=== PATIENT | female | born 1935 | race Caucasian/White ===

== ENCOUNTER 2020-03-22 04:25 | Inpatient (IN) | payer MEDICARE ==
[~2020-03-22] VITALS: Ht 157.5 cm; Wt 84.2 kg
--- NOTE | 2020-03-22 04:54 | PHYS DOC ---
General Adult EDM: Chief Complaint: SYNCOPE HPI: HPI: 85-year-old deaf female presents after syncopal episode at home. Her daughter provides sign interpretation for the patient. The patient had several episodes of diarrhea earlier today. She was on the toilet having a bowel movement when she came pale and slumped over to the side. She was unresponsive for several seconds and then woke back up. She did not fall off of the toilet because her daughter was there to help her. She is the one who called EMS. The patient has not had a previous syncopal episode. She did take Imodium earlier today her diarrhea seemed to resolve. She currently complains of right lower quadrant abdominal pain. It is a mild to moderate cramping sensation. She denies fever or chills. (LESLIE TAYLOR DO) Review of Systems: Review of Systems: Constitutional: Denies fever or chills Eyes: Denies change in visual acuity HENT: Denies nasal congestion or sore throat Respiratory: Denies cough or shortness of breath Cardiovascular: Denies chest pain or edema GI: RLQ abdominal pain, diarrhea : Denies dysuria Musculoskeletal: Denies back pain or joint pain Integument: Denies rash Neurologic: Denies headache, focal weakness or sensory changes Endocrine: Denies polyuria or polydipsia Lymphatic: Denies swollen glands Psychiatric: Denies depression or anxiety (LESLIE TAYLOR DO) Review of Systems: +cough, +diarrhea (SHARAD NAYAK MD) Allergies: Allergies: Allergies Coded Allergies Type Severity Reaction Last Updated Verified No Known Drug Allergies 03/22/20 No (LESLIE TAYLOR DO) Physical Exam: PE: Constitutional: Well developed, well nourished, no acute distress, non-toxic appearance. [] HENT: Normocephalic, atraumatic, bilateral external ears normal, oropharynx moist, no oral exudates, nose normal. [] Eyes: PERRLA, EOMI, conjunctiva normal, no discharge. [] Neck: Normal range of motion, no tenderness, supple, no stridor. [] Cardiovascular: Heart rate regular rhythm, no murmur [] Lungs & Thorax: Bilateral breath sounds clear to auscultation [] Abdomen: Bowel sounds normal, soft, RLQ tenderness, no masses, no pulsatile masses. [] Skin: Warm, dry, no erythema, no rash. [] Back: No tenderness, no CVA tenderness. [] Extremities: No tenderness, no cyanosis, no clubbing, ROM intact, no edema. [] Neurologic: Alert and oriented X 3, normal motor function, normal sensory func tion, no focal deficits noted. [] Psychologic: Affect normal, judgement normal, mood normal. [] (LESLIE TAYLOR DO) PE: Resting comfortably, no respiratory distress (SHARAD NAYAK MD) Current Patient Data: Labs: Laboratory Tests Test 03/22/20 04:40 White Blood Count 5.2 x10^3/uL Red Blood Count 3.49 x10^6/uL Hemoglobin 10.6 g/dL Hematocrit 32.9 % Mean Corpuscular Volume 94 fL Mean Corpuscular Hemoglobin 30 pg Mean Corpuscular Hemoglobin Concent 32 g/dL Red Cell Distribution Width 13.9 % Platelet Count 162 x10^3/uL Neutrophils (%) (Auto) 57 % Lymphocytes (%) (Auto) 29 % Monocytes (%) (Auto) 12 % Eosinophils (%) (Auto) 1 % Basophils (%) (Auto) 1 % Neutrophils # (Auto) 3.0 x10^3uL Lymphocytes # (Auto) 1.5 x10^3/uL Monocytes # (Auto) 0.6 x10^3/uL Eosinophils # (Auto) 0.0 x10^3/uL Basophils # (Auto) 0.0 x10^3/uL Sodium Level 140 mmol/L Potassium Level 3.9 mmol/L Chloride Level 103 mmol/L Carbon Dioxide Level 23 mmol/L Anion Gap 14 Blood Urea Nitrogen 49 mg/dL Creatinine 3.2 mg/dL Estimated GFR (Cockcroft-Gault) 13.7 BUN/Creatinine Ratio 15 Glucose Level 116 mg/dL Calcium Level 7.4 mg/dL Total Bilirubin 0.2 mg/dL Aspartate Amino Transf (AST/SGOT) 15 U/L Alanine Aminotransferase (ALT/SGPT) 14 U/L Alkaline Phosphatase 94 U/L Troponin I Quantitative < 0.017 ng/mL Total Protein 7.0 g/dL Albumin 3.1 g/dL Albumin/Globulin Ratio 0.8 Current Medications Medications (Trade) Dose Ordered Sig/Nisa Route PRN Reason Start Time Stop Time Status Last Admin Dose Admin Sodium Chloride 1,000 ml @ 1,000 mls/hr 1X ONCE IV 03/22/20 05:00 03/22/20 05:59 DC 03/22/20 05:00 Iohexol (Omnipaque 300 Mg/ml) 75 ml 1X ONCE IV 03/22/20 05:30 03/22/20 05:35 DC Info (Do NOT chart on this entry -- for MONITORING) 1 each PRN DAILY PRN MC SEE COMMENTS 03/22/20 05:30 03/24/20 05:29 Vital Signs: Vital Signs Date Time Temp Pulse Resp B/P (MAP) Pulse Ox O2 Delivery O2 Flow Rate FiO2 03/22/20 05:30 80 21 149/95 (113) 94 Room Air 03/22/20 04:25 98.1 (SHARAD NAYAK MD) EKG: EKG: Sinus rhythm, rate 76, normal axis, no ST elevations or depressions, PVCs. [] (LESLIE TAYLOR DO) EKG: EKG interpreted by me normal sinus rhythm rate 76 normal axis frequent PVCs, normal intervals, nonspecific ST changes (SHARAD NAYAK MD) Radiology/Procedures: Radiology/Procedures: [] Impressions: CHEST AP ONLY Clinical History: Reason: syncope / Spl. Instructions: / History: Technique: AP view of the chest was obtained at 03/22/2020 4:32 AM. Comparison: None. Findings: There are median sternotomy wires. The heart is top normal limits in size. The pulmonary vessels appear normal. There are linear opacities in the lung bases. Deformity of the proximal left humerus is likely secondary to old injury. Impression: Mild basal infiltrates likely discoid atelectasis. Electronically signed by: Ismael Samano III, MD (03/22/2020 5:10 AM) [facility] DICTATED AND SIGNED BY: ISMAEL SAMANO III, MD DATE: 03/22/20509 CC: LESLIE TAYLOR DO ~ (LESLIE TAYLOR DO) Radiology/Procedures: [address] [address] IMAGING REPORT Signed PATIENT: ROBIN HAUSER ACCOUNT: [id number] : 1935 LOCATION: ER AGE: 85 SEX: F EXAM STATUS: PRE ER ORD. PHYSICIAN: LESLIE TAYLOR DO REASON: syncope PROCEDURE: CHEST AP ONLY CHEST AP ONLY Clinical History: Reason: syncope / Spl. Instructions: / History: Technique: AP view of the chest was obtained at 03/22/2020 4:32 AM. Comparison: None. Findings: There are median sternotomy wires. The heart is top normal limits in size. The pulmonary vessels appear normal. There are linear opacities in the lung bases. Deformity of the proximal left humerus is likely secondary to old injury. Impression: Mild basal infiltrates likely discoid atelectasis. Electronically signed by: Ismael Samano III, MD (03/22/2020 5:10 AM) [facility] DICTATED AND SIGNED BY: ISMAEL SAMANO III, MD DATE: 03/22/20509 CC: LESLIE TAYLOR DO ~ [address] [address] IMAGING REPORT Signed PATIENT: ROBIN HAUSER ACCOUNT: [id number] : 1935 LOCATION: ER AGE: 85 SEX: F EXAM STATUS: PRE ER ORD. PHYSICIAN: LESLIE TAYLOR DO REASON: syncope PROCEDURE: CHEST AP ONLY CHEST AP ONLY Clinical History: Reason: syncope / Spl. Instructions: / History: Technique: AP view of the chest was obtained at 03/22/2020 4:32 AM. Comparison: None. Findings: There are median sternotomy wires. The heart is top normal limits in size. The pulmonary vessels appear normal. There are linear opacities in the lung bases. Deformity of the proximal left humerus is likely secondary to old injury. Impression: Mild basal infiltrates likely discoid atelectasis. Electronically signed by: Ismael Samano III, MD (03/22/2020 5:10 AM) [facility] DICTATED AND SIGNED BY: ISMAEL SAMANO III, MD DATE: 03/22/20509 CC: LESLIE TAYLOR DO ~ [address] [address] IMAGING REPORT Signed PATIENT: ROBIN HAUSER ACCOUNT: [id number] : 1935 LOCATION: ER AGE: 85 SEX: F EXAM STATUS: REG ER ORD. PHYSICIAN: LESLIE TAYLOR DO REASON: diarrhea, syncope PROCEDURE: CT ABDOMEN PELVIS WO CONTRAST Abdominal and Pelvis CT, Without Contrast: History: Reason: diarrhea, syncope / Spl. Instructions: / History: Comparison: None. Procedure: Axial images are obtained of the abdomen and pelvis, without IV or oral contrast. Oral Contrast: No Findings: Evaluation of solid organs is limited without contrast. There is vague patchy opacities in lung bases. There is moderate size hiatal hernia. There is a short segment of bowel posterior to the cecum which could be a normal appendix. The uterus and ovaries are not seen and could be small or surgically removed. There is marked degenerative changes of the lumbar spine with scoliosis and multilevel central and neuroforaminal stenosis. There has been prior cholecystectomy. The common bile duct is mildly dilated. Liver: Normal. Spleen: Normal. Pancreas: Normal. Adrenal Glands: Normal. Kidneys: Normal. There is no free air or free fluid. There is no lymphadenopathy. The urinary bladder appears normal. There is no pericolonic inflammation identified. Impression: 1. Marked degenerative changes of the spine with scoliosis and multilevel central and neuroforaminal stenosis. 2. Moderate size hiatal hernia. 3. Vague patchy somewhat nodular opacities in the lung bases. This could be discoid atelectasis or early atypical pneumonia. Pulmonary metastasis is not excluded. Recommend follow-up chest x-ray to complete resolution. End impression PQRS Compliance Statement: One or more of the following individualized dose reduction techniques were utilized for this examination: 1. Automated exposure control 2. Adjustment of the mA and/or kV according to patient size 3. Use of iterative reconstruction technique Electronically signed by: Ismael Samano III, MD (03/22/2020 6:18 AM) [facility] DICTATED AND SIGNED BY: ISMAEL SAMANO III, MD DATE: 03/22/20 0618 CC: LESLIE TAYLOR DO; SHARAD NAYAK MD; LINDSAY BATES MD ~ (SHARAD NAYAK MD) Heart Score: Risk Factors: Risk Factors: DM, Current or recent (<one month) smoker, HTN, HLP, family history of CAD, obesity. Risk Scores: Score 0 - 3: 2.5% MACE over next 6 weeks - Discharge Home Score 4 - 6: 20.3% MACE over next 6 weeks - Admit for Clinical Observation Score 7 - 10: 72.7% MACE over next 6 weeks - Early Invasive Strategies (LESLIE TAYLOR DO) Course & Med Decision Making: Course & Med Decision Making Pertinent Labs and Imaging studies reviewed. (See chart for details) The patient's chest x-ray shows some bilateral atelectasis. Her EKG is significant for frequent PVCs. Labs remarkable for hemoglobin 10.6. She has an elevated BUN and creatinine of 3.2. I have no history of labs for comparison. This could be acute due to her acute diarrhea. We have given her a liter normal saline. CT scans are pending. I am signing the patient out to Dr. Nayak at 0600. [] (LESLIE TAYLOR DO) Course & Med Decision Making 85-year-old female signed out to me by Dr. Taylor. Patient is a 85-year-old female with a cough and diarrhea. Patient had a syncopal event prior to arrival. Patient is resting comfortably on my assessment. Work-up reveals a atypical pneumonia. Due to the fact the patient had a cough and has atypical pneumonia on CT and has had diarrhea she will be swabbed for COVID-19. Patient also has a history of renal disease and has acute renal insufficiency. Patient will need to be admitted. d/w Dr. Brewer who will admit (SHARAD NAYAK MD) Dragon Disclaimer: Joshua Disclaimer: This electronic medical record was generated, in whole or in part, using a voice recognition dictation system. (LESLIE TAYLOR DO) Departure Departure: Impression: Primary Impression: Syncope Additional Impressions: Suspected COVID-19 virus infection Diarrhea Renal failure Disposition: ADMITTED INPT THIS HOSP Admitting Physician: Erik Brewer (SHARAD NAYAK MD) Condition: IMPROVED LESILE TAYLOR DO Mar 22, 2020 04:54 SHARAD NAYAK MD Mar 22, 2020 06:21
[2020-03-22] MEDS ORDERED: IV NORMAL SALINE 1,000ML 1,000 ML IV ONE ×2 (05:00→07:00)
[2020-03-22 05:03] LABS: BASO % 1 % (0-3); EOS % 1 % (0-3); HEMATOCRIT 32.9 % (36.0-47.0); HEMOGLOBIN 10.6 g/dL (12.0-15.5); LYMPH # 1.5 x10^3/uL (1.0-4.8); LYMPH % 29 % (24-48); MEAN CORPUSCULAR HEMOGLOBIN 30 pg (25-35); MEAN CORPUSCULAR HGB CONC 32 g/dL (31-37); MEAN CORPUSCULAR VOLUME 94 fL (79-100); MONO # 0.6 x10^3/uL (0.0-1.1); MONO % 12 % (0-9); NEUT % 57 % (31-73); PLATELET COUNT 162 x10^3/uL (140-400); RED BLOOD COUNT 3.49 x10^6/uL (3.50-5.40); RED CELL DISTRIBUTION WIDTH 13.9 % (11.5-14.5); WHITE BLOOD COUNT 5.2 x10^3/uL (4.0-11.0)
[2020-03-22 05:12] LABS: CALCIUM 7.4 mg/dL (8.5-10.1); CREATININE 3.2 mg/dL (0.6-1.0); GFR 13.7; POTASSIUM 3.9 mmol/L (3.5-5.1)
--- NOTE | 2020-03-22 05:13 | RAD ---
CHEST AP ONLY Clinical History: Reason: syncope / Spl. Instructions: / History: Technique: AP view of the chest was obtained at 03/22/2020 4:32 AM. Comparison: None. Findings: There are median sternotomy wires. The heart is top normal limits in size. The pulmonary vessels appear normal. There are linear opacities in the lung bases. Deformity of the proximal left humerus is likely secondary to old injury. Impression: Mild basal infiltrates likely discoid atelectasis. Electronically signed by: Ignacio Erwin III, MD (03/22/2020 5:10 AM) [facility]
[2020-03-22 05:18] LABS: ALBUMIN 3.1 g/dL (3.4-5.0); ALBUMIN/GLOBULIN RATIO 0.8 (1.0-1.7); TOTAL BILIRUBIN 0.2 mg/dL (0.2-1.0)
[2020-03-22] MEDS ORDERED: CONTRAST GIVEN. MC PRN (05:30)
[2020-03-22] MEDS ORDERED: IOHEXOL 300 MG/ML 75 ML VIAL. IV ONE (05:30)
--- NOTE | 2020-03-22 06:12 | EKG ---
[facility] ED [facility] [place] [id number] Test Date: 2020-03-22 Test Time: 04:32:22 Pat Name: ROBIN HAUSER Department: Room: Gender: F [employer] Room Attendant: HALI : 1935 Requested By: LESLIE TAYLOR Order Number: [id number] Reading MD: Measurements Intervals Rosamond Rate: 76 P: 0 RI: 188 QRS: 68 QRSD: 86 T: 54 QT: 366 QTc: 416 Interpretive Statements SINUS RHYTHM VENTRICULAR PREMATURE COMPLEX(ES) ABNORMAL ECG RI6.02 No previous ECG available for comparison
--- NOTE | 2020-03-22 06:16 | RAD ---
CT Head W/O Contrast: History: Reason: syncope / Spl. Instructions: / History: Comparison: none Axial images were obtained without contrast. There is mild diffuse atrophy. There is no mass effect, extraaxial fluid collections or gross bleed. There is ventriculomegaly. Mild, patchy periventricular and subcortical white matter hypoattenuation is seen. There is no focal loss of ortiz-white matter distinction to suggest acute ischemia, i.e. stroke. Impression: Ventriculomegaly could be secondary to atrophy. Otherwise no acute findings. End impression PQRS Compliance Statement: One or more of the following individualized dose reduction techniques were utilized for this examination: 1. Automated exposure control 2. Adjustment of the mA and/or kV according to patient size 3. Use of iterative reconstruction technique Electronically signed by: Ignacio Erwin III, MD (03/22/2020 6:13 AM) [facility]
--- NOTE | 2020-03-22 06:21 | RAD ---
Abdominal and Pelvis CT, Without Contrast: History: Reason: diarrhea, syncope / Spl. Instructions: / History: Comparison: None. Procedure: Axial images are obtained of the abdomen and pelvis, without IV or oral contrast. Oral Contrast: No Findings: Evaluation of solid organs is limited without contrast. There is vague patchy opacities in lung bases. There is moderate size hiatal hernia. There is a short segment of bowel posterior to the cecum which could be a normal appendix. The uterus and ovaries are not seen and could be small or surgically removed. There is marked degenerative changes of the lumbar spine with scoliosis and multilevel central and neuroforaminal stenosis. There has been prior cholecystectomy. The common bile duct is mildly dilated. Liver: Normal. Spleen: Normal. Pancreas: Normal. Adrenal Glands: Normal. Kidneys: Normal. There is no free air or free fluid. There is no lymphadenopathy. The urinary bladder appears normal. There is no pericolonic inflammation identified. Impression: 1. Marked degenerative changes of the spine with scoliosis and multilevel central and neuroforaminal stenosis. 2. Moderate size hiatal hernia. 3. Vague patchy somewhat nodular opacities in the lung bases. This could be discoid atelectasis or early atypical pneumonia. Pulmonary metastasis is not excluded. Recommend follow-up chest x-ray to complete resolution. End impression PQRS Compliance Statement: One or more of the following individualized dose reduction techniques were utilized for this examination: 1. Automated exposure control 2. Adjustment of the mA and/or kV according to patient size 3. Use of iterative reconstruction technique Electronically signed by: Ignacio Erwin III, MD (03/22/2020 6:18 AM) [facility]
[2020-03-22] MEDS ORDERED: ONDANSETRON PF 4 MG/2 ML VIAL. IVP PRN ×2 (07:00→08:00)
[2020-03-22] MEDS ORDERED: ACETAMINOPHEN 325 MG TABLET PO PRN (08:00)
[2020-03-22 08:34] LABS: BACTERIA,URINE MANY /HPF (0-FEW); BILIRUBIN,URINE NEG (NEG); CLARITY,URINE CLOUDY; COLOR,URINE YELLOW; GLUCOSE,URINE NEG (NEG); NITRITE,URINE NEG (NEG); UROBILINOGEN,URINE 0.2 mg/dL (0.2 mg/dL); WBC,URINE 20-40 /HPF (0-4)
[2020-03-22 08:35] LABS: HYALINE CASTS, URINE OCC /HPF; SQUAMOUS EPITHELIAL CELL,UR FEW /LPF
[2020-03-22 08:40] VITALS: BP 123/58
[2020-03-22 10:15] VITALS: BP 121/54
[2020-03-22] MEDS ORDERED: ATOR40TA59 PO (11:10)
[2020-03-22] MEDS ORDERED: LEVO50TA5 PO (11:10)
[2020-03-22] MEDS ORDERED: PANT40TA6 PO (11:10)
[2020-03-22] MEDS ORDERED: DULO60CA6 PO (11:10)
[2020-03-22] MEDS ORDERED: METO50TA6 PO (11:10)
[2020-03-22] MEDS ORDERED: FURO20TA3 PO (11:10)
[2020-03-22] MEDS: METOPROLOL TART IMMED RELEASE 50 MG TABLET PO SCH (11:30)
[2020-03-22] MEDS: LEVOTHYROXINE 50 MCG TABLET PO SCH (11:30)
[2020-03-22] MEDS: PANTOPRAZOLE 40 MG TABLET. PO SCH (11:30)
--- NOTE | 2020-03-22 11:49 | HP ---
ADMIT DATE: 03/22/2020 ATTENDING PHYSICIAN: Dr. Degroot. CHIEF COMPLAINT: Syncope. HISTORY OF PRESENT ILLNESS: The patient is an 85-year-old female, who is deaf. She lives with her daughter. She provided some information. She had several episodes of diarrhea earlier today. She was on the toilet, having a bowel movement, she strained, she became pale and slumped over. I suspect she had a vasovagal episode. She was unresponsive for several seconds and woke back up. She did not fall of the toilet, daughter was there to catch her and she called EMS. She has not had a previous syncopal episode. She did take some Imodium earlier. PAST MEDICAL HISTORY: Unobtainable due to the patient's current condition. We are trying to find out what prescription meds and what medical history she has. I will try to contact ____ daughters later. CURRENT MEDICATIONS: ____ MEDICAL HISTORY: To be determined. SOCIAL HISTORY: She is a nonsmoker, nondrinker. FAMILY HISTORY: Unobtainable. REVIEW OF SYSTEMS: Unobtainable. PHYSICAL EXAMINATION: GENERAL: When I saw her, this is a pleasant deaf female. INITIAL VITAL SIGNS: In the ED showed a blood pressure of 121/54, pulse is 78 and regular, she was afebrile, oxygen saturation 95% on room air. HEENT: Head is without trauma. Pupils are reactive. Sclerae nonicteric. The oropharynx is clear. NECK: Supple, no bruits. LUNGS: Otherwise clear. CARDIOVASCULAR: Showed regular heart tones. No gallops. ABDOMEN: Soft, no guarding or rebound tenderness. Bowel sounds are normoactive. EXTREMITIES: Showed no cyanosis or edema. NEUROLOGIC FINDINGS: The patient is deaf. She has no focal deficits. SKIN: Warm and dry. PERTINENT LABORATORY AND X-RAY STUDIES AND IMAGING STUDIES: Initial hemoglobin is 10.6 g, white count 5200. Electrolytes are within normal range. BUN is 49 and creatinine is 3.2 mg/dL, I am not aware of her baseline. Her obligatory CT of the head demonstrated microvascular changes and some atrophy, no acute changes identified. Chest x-ray was unremarkable for any acute infiltrates. CT of the abdomen and pelvis showed solid organs are intact. There is no obstruction, no lymphadenopathy. Degenerative changes of the spine, moderate size hiatal hernia. She had some discoid atelectasis in the lungs. ASSESSMENT: 1. An 85-year-old female with syncopal episode, probably vasovagal in nature. 2. Chronic kidney disease, stage 4. 3. Deafness by history. 4. Degenerative arthritis. 5. Atelectasis. 6. Rule out coronavirus infection. PLAN: 1. Admit to the ICU. 2. We will not start empiric treatment until her COVID-19 swab is back. 3. I am trying to ascertain her medication to see if she is on a diuretic. 4. Followup chemistries. 5. Diet as tolerated. MARY ELLEN DEGROOT MD DR: CISCO/rachel JOB#: [id number] / [id number]
[2020-03-22 15:07] VITALS: BP 113/51
[2020-03-22 19:00] VITALS: BP 112/62
[2020-03-22 23:30] VITALS: BP 125/60
[2020-03-23] MEDS: LEVOTHYROXINE 50 MCG TABLET PO SCH (05:37)
[2020-03-23 05:50] VITALS: BP_SYST 120; BP_SYST 99; BP_DIAS 54; BP_DIAS 65
[2020-03-23] MEDS: PANTOPRAZOLE 40 MG TABLET. PO SCH (08:25)
[2020-03-23] MEDS: DULoxetine HCL 60 MG CAPSULE.DR PO SCH ×2 (08:25→12:20)
[2020-03-23] MEDS: METOPROLOL TART IMMED RELEASE 50 MG TABLET PO SCH (08:25)
[2020-03-23 10:58] VITALS: BP 120/57
[2020-03-23] MEDS ORDERED: ACET325T9 PO (11:33)
[2020-03-23] MEDS ORDERED: OXYB10TA7 PO (11:33)
[2020-03-23] MEDS ORDERED: ALBU2.5V8 INH (11:33)
[2020-03-23] MEDS ORDERED: FLUT12AE IH (11:33)
[2020-03-23] MEDS ORDERED: ASPI-630 PO (11:33)
[2020-03-23] MEDS ORDERED: ALBU2.5V8 IH (11:33)
[2020-03-23] MEDS ORDERED: ACETAMINOPHEN 325 MG TABLET PO PRN (14:15)
[2020-03-23] MEDS: ENOXAPARIN 30 MG/0.3 ML SYRINGE. SQ SCH (14:35)
[2020-03-23] MEDS: DEXAMETHASONE 4 MG TABLET PO SCH (14:35)
[2020-03-23 15:05] LABS: CALCIUM 7.6 mg/dL (8.5-10.1); CREATININE 3.4 mg/dL (0.6-1.0); GFR 12.8; POTASSIUM 4.4 mmol/L (3.5-5.1)
[2020-03-23 15:28] VITALS: BP 115/62
[2020-03-23 20:15] VITALS: BP 141/65
[2020-03-23] MEDS: FAMOTIDINE 20 MG TABLET PO SCH (20:25)
--- NOTE | 2020-03-24 00:57 | PN ---
DATE: 03/23/2020 ATTENDING PHYSICIAN: Dr. Degroot. SUBJECTIVE: The patient is pleasantly confused. She is in no obvious distress. OBJECTIVE FINDING: Her serology came back positive for coronavirus. Her creatinine was 3.2 mg/dL. It is pending today. Troponins were negative. VITAL SIGNS: Blood pressure today is 120/57, pulse 62 and regular. She was afebrile, oxygen saturation 97% on 2 liters nasal cannula. HEENT: Head is without trauma. Pupils are reactive. Sclerae nonicteric. Oropharynx clear. NECK: Supple. LUNGS: Coarse rhonchi in the upper airways. CARDIOVASCULAR: Showed regular heart tones. No gallops. Peripheral pulses are palpable and full. ABDOMEN: Soft, obese, protuberant. EXTREMITIES: Without edema. NEUROLOGIC: Profoundly deaf, pleasantly confused. ASSESSMENT: 1. An 85-year-old female with syncopal episode, probably vasovagal in nature. 2. Positive coronavirus swab. 3. Chronic kidney disease stage 4. 4. Deafness. 5. Degenerative arthritis. 6. Atelectasis on chest x-ray. PLAN: 1. We will start empiric treatment with Lovenox, Pepcid, zinc and Decadron. 2. We are trying to follow up on her medication. 3. We need to ascertain her code status. 4. Diet as tolerated. MARY ELLEN DEGROOT MD DR: CISCO/rachel JOB#: [id number] / [id number]
[2020-03-24 01:06] VITALS: BP 126/60
[2020-03-24] MEDS: LEVOTHYROXINE 50 MCG TABLET PO SCH (05:14)
[2020-03-24 05:26] VITALS: BP 150/78
[2020-03-24] MEDS: PANTOPRAZOLE 40 MG TABLET. PO SCH (07:56)
[2020-03-24] MEDS: ASPIRIN CHEWABLE 81 MG TABLET. PO SCH (07:56)
[2020-03-24] MEDS: METOPROLOL TART IMMED RELEASE 50 MG TABLET PO SCH (07:56)
[2020-03-24] MEDS: FLUTICASONE FUROATE 100mcg/INH ELLIPTA INHALER. INH SCH (07:57)
[2020-03-24] MEDS: DEXAMETHASONE 4 MG TABLET PO SCH (07:57)
[2020-03-24] MEDS: ZINC SULFATE 220 MG CAPSULE. PO SCH (07:58)
[2020-03-24] MEDS: DULoxetine HCL 60 MG CAPSULE.DR PO SCH (11:29)
[2020-03-24] MEDS: ENOXAPARIN 30 MG/0.3 ML SYRINGE. SQ SCH (11:29)
[2020-03-24 12:00] VITALS: BP 146/72
[2020-03-24 15:15] VITALS: BP 104/54
[2020-03-24] MEDS: IV NORMAL SALINE 1,000ML 1,000 ML IV SCH (17:10)
[2020-03-24] MEDS ORDERED: IV NORMAL SALINE 1,000ML 1,000 ML IV ONE (17:15)
[2020-03-24 18:41] LABS: CALCIUM 7.2 mg/dL (8.5-10.1); CREATININE 3.1 mg/dL (0.6-1.0); GFR 14.2
[2020-03-24] MEDS: ALBUTEROL SULFATE 8GM INHALER. INH SCH (19:27)
[2020-03-24] MEDS: FAMOTIDINE 20 MG TABLET PO SCH (19:27)
[2020-03-24 20:27] VITALS: BP 155/75
[2020-03-24 22:25] VITALS: BP 170/95
[2020-03-25] MEDS: IV NORMAL SALINE 1,000ML 1,000 ML IV SCH ×2 (03:00→13:00)
[2020-03-25 03:55] VITALS: BP 126/54
[2020-03-25] MEDS: LEVOTHYROXINE 50 MCG TABLET PO SCH (04:26)
[2020-03-25] MEDS: ALBUTEROL SULFATE 8GM INHALER. INH SCH ×6 (04:26→19:57)
[2020-03-25 05:02] LABS: ALBUMIN 2.7 g/dL (3.4-5.0); ALBUMIN/GLOBULIN RATIO 0.7 (1.0-1.7); CALCIUM 7.5 mg/dL (8.5-10.1); CREATININE 3.2 mg/dL (0.6-1.0); GFR 13.7; POTASSIUM 4.5 mmol/L (3.5-5.1); TOTAL BILIRUBIN 0.1 mg/dL (0.2-1.0); TOTAL PROTEIN 6.4 g/dL (6.4-8.2)
[2020-03-25 07:05] LABS: HEMATOCRIT 31.8 % (36.0-47.0); HEMOGLOBIN 10.2 g/dL (12.0-15.5); RED BLOOD COUNT 3.36 x10^6/uL (3.50-5.40); RED CELL DISTRIBUTION WIDTH 14.4 % (11.5-14.5); WHITE BLOOD COUNT 6.6 x10^3/uL (4.0-11.0)
[2020-03-25] MEDS: ZINC SULFATE 220 MG CAPSULE. PO SCH (08:49)
[2020-03-25] MEDS: ASPIRIN CHEWABLE 81 MG TABLET. PO SCH (08:49)
[2020-03-25] MEDS: PANTOPRAZOLE 40 MG TABLET. PO SCH (08:49)
[2020-03-25] MEDS: DEXAMETHASONE 4 MG TABLET PO SCH (08:50)
[2020-03-25] MEDS: METOPROLOL TART IMMED RELEASE 50 MG TABLET PO SCH (08:50)
[2020-03-25] MEDS: FLUTICASONE FUROATE 100mcg/INH ELLIPTA INHALER. INH SCH (09:00)
[2020-03-25 10:47] VITALS: BP 134/73
[2020-03-25] MEDS: DULoxetine HCL 60 MG CAPSULE.DR PO SCH (10:55)
--- NOTE | 2020-03-25 14:36 | PN ---
DATE: 03/24/2020 SUBJECTIVE: The patient is an 85-year-old female patient who was admitted apparently with what seems to be syncopal episodes. She was evaluated in the Emergency Room and apparently she was tested for coronavirus, the PCR it turned out to be positive. Her chemistry showed she has either chronic kidney disease or acute on chronic kidney disease. Her urinalysis showed that she has 20-40 wbc's and many bacteria and her urine culture has grown more than 100,000 colony forming units per mL of Escherichia coli, sensitive to almost all antibiotics and she is on ceftriaxone 1 g IV. When I saw her today, she has recurrent episode of nausea, vomiting as well as diarrhea and abdominal discomfort. PHYSICAL EXAMINATION: GENERAL: When I examined her, she was somewhat pale, no jaundice or cyanosis. No lymphadenopathy, no thyromegaly. No jugular venous distention. No limb edema. VITAL SIGNS: Her heart rate was 66, blood pressure was 104/54, temperature was 97.7, respiratory rate was 18 and oxygen saturation was 96% on 2 liters of oxygen. HEENT: Showed normocephalic, atraumatic. NECK: Supple. HEART: Showed normal first and second heart sounds. No gallop, rub or murmur. CHEST: Clear to auscultation. No crepitation or rhonchi. Chest x-ray showed central trachea, equal bilateral expansion, air entry, but she has diffuse wheezing throughout both lung harris. I could not appreciate any rhonchi. I could not appreciate any crepitation. ABDOMEN: Distended, soft with mild diffuse tenderness. No guarding or rigidity. No organomegaly. All hernial orifice intact. Bowel sounds normal. NEUROLOGIC: She is extremely hard of hearing, but all other cranial nerves were intact. She moves extremities without difficulty. Her intake was 1400, output was 400. LABORATORY DATA: Her most recent white cell count was 5200, hemoglobin 10.6, hematocrit 32.9, MCV 94 and platelet count of 162,000. As of yesterday, her serum sodium was 139, potassium 4.4, chloride 106, bicarbonate 22, anion gap of 11, BUN 48, creatinine 3.4, estimated GFR was 12.8 mL per minute. Her glucose 118, calcium was 7.6. In summary, this is an 85-year-old female. 1. The patient's syncopal episode likely due to a vasovagal in nature versus dehydration. 2. She was found positive for coronavirus by PCR. 3. She has kidney disease. As I do not have anything to compare with, so it is difficult whether this is acute on chronic or chronic. 4. The patient is extremely deaf. 5. She has degenerative arthritis. The patient is currently on ceftriaxone. She is also on dexamethasone, Lovenox together with Protonix, metoprolol for high blood pressure and levothyroxine for hypothyroidism. I am concerned that the kidney failure ____ I do not have anything to compare with, whether this is acute on chronic. I will repeat her labs stat today and again tomorrow. Will start her also empirically on IV fluid. Her chest x-ray showed mild basilar infiltrate, likely discoid atelectasis. She does have median sternotomy wires. The heart is top normal limit in size. The pulmonary vessels appear normal. There are linear opacities in the lung bases. Deformity of the proximal left humerus, likely secondary to old injury. TERESA TONG MD DR: BERE/rachel JOB#: [id number] / [id number]
[2020-03-25 15:25] VITALS: BP 135/49
[2020-03-25] MEDS: ENOXAPARIN 30 MG/0.3 ML SYRINGE. SQ SCH (15:43)
[2020-03-25 19:48] VITALS: BP 113/54
[2020-03-25] MEDS: LACTOBACILLUS RHAMNOSUS GG 1 CAPSULE. PO SCH (19:56)
[2020-03-25] MEDS: FAMOTIDINE 20 MG TABLET PO SCH (19:57)
[2020-03-25 22:48] VITALS: BP 125/55
[2020-03-26] MEDS: ALBUTEROL SULFATE 8GM INHALER. INH SCH ×4 (04:00→14:42)
[2020-03-26] MEDS: LEVOTHYROXINE 50 MCG TABLET PO SCH (05:04)
[2020-03-26 05:20] VITALS: BP 116/50
[2020-03-26] MEDS: METOPROLOL TART IMMED RELEASE 50 MG TABLET PO SCH (08:09)
[2020-03-26] MEDS: PANTOPRAZOLE 40 MG TABLET. PO SCH (08:09)
[2020-03-26] MEDS: DEXAMETHASONE 4 MG TABLET PO SCH (08:09)
[2020-03-26] MEDS: LACTOBACILLUS RHAMNOSUS GG 1 CAPSULE. PO SCH (08:10)
[2020-03-26] MEDS: ZINC SULFATE 220 MG CAPSULE. PO SCH (08:10)
[2020-03-26] MEDS: ASPIRIN CHEWABLE 81 MG TABLET. PO SCH (08:10)
[2020-03-26] MEDS: FLUTICASONE FUROATE 100mcg/INH ELLIPTA INHALER. INH SCH (09:00)
--- NOTE | 2020-03-26 10:27 | PN ---
DATE: 03/25/2020 SUBJECTIVE: The patient is resting, slightly propped up in bed, in no apparent distress. She is awake, alert, extremely hard of hearing. However, she denied any further episodes of nausea or vomiting. Denied any diarrhea. Despite treatment with IV fluid, her kidney function remained stable and apparently her family stated she has chronic kidney disease. PHYSICAL EXAMINATION: GENERAL: When I examined her this afternoon, she looked well and was clearly in no apparent respiratory distress. No pallor, jaundice, cyanosis or thyromegaly. No jugular venous distention. No limb edema. VITAL SIGNS: Her heart rate was 62, blood pressure 134/73, temperature was 98, respiratory rate 20, and oxygen saturation was 96%. HEAD, EYES, EARS, NOSE, THROAT: Showed normocephalic, atraumatic. NECK: Supple. HEART: Normal first and second heart sounds. No gallop, rub or murmur. CHEST: Showed central trachea, equal bilateral expansion and air entry with air entry, vesicular sounds. I could not see any crepitation or rhonchi, much better than yesterday. ABDOMEN: Distended, soft, nontender. NEUROLOGIC: She is extremely hard of hearing, but otherwise all cranial nerves intact. She moves extremities without difficulty. Her intake over the last 24 hours was incompletely recorded, output was ____. LABORATORY DATA: Her white cell count was 6600, hemoglobin 10, hematocrit 32, MCV 95, and platelet count of 164,000. Her serum sodium is 142, potassium 4.5, chloride 108, bicarbonate 22, anion gap of 12, BUN 58, creatinine 3.2, estimated GFR was 13 mL per minute. Her glucose ____, calcium 7.5. Total bilirubin, AST, ALT, alkaline phosphatase were normal. Total protein 6.4, albumin was 2.7. Urinalysis showed small amount of leukocyte esterase and 20-40 wbc's. Her urine culture has grown Escherichia coli and more than 100,000 colony forming units per mL of Escherichia coli sensitive to all cephalosporins. ASSESSMENT: 1. The patient was admitted with syncopal episode, likely to vasovagal in nature versus dehydration. 2. Was found with positive coronavirus PCR. 3. She has chronic kidney disease. 4. She has severe sensorineural deafness. 5. She has also degenerative joint disease. 6. Urinary tract infection with growth of Escherichia coli. PLAN: To discharge her home tomorrow to continue oral antibiotic and tapering course of steroids. TERESA TONG MD DR: BERE/rachel JOB#: [id number] / [id number]
[2020-03-26 10:53] VITALS: BP 134/54
[2020-03-26] MEDS: DULoxetine HCL 60 MG CAPSULE.DR PO SCH (11:06)
[2020-03-26] MEDS: ENOXAPARIN 30 MG/0.3 ML SYRINGE. SQ SCH (14:42)
[2020-03-26] MEDS ORDERED: CEFD300C PO (15:11)
--- NOTE | 2020-03-26 15:13 | DISCH ---
HOME HEALTH DISCHARGE/MEDS DISCHARGE INFORMATION: Discharge Date: Mar 26, 2020 Final Diagnosis: Problems Medical Problems: (1) Diarrhea Status: Acute (2) Renal failure Status: Acute (3) Renal insufficiency Status: Acute (4) Suspected COVID-19 virus infection Status: Acute (5) Syncope Status: Acute Condition on Discharge: Stable CODE STATUS: Code Status: Full HOME HEALTH: Face to Face: I certify this patient is under my care and that I, or a nurse practitioner or physician's assistant refinery operator working with me, had a face to face encounter that meets the physician face to face encounter requirements with this patient on 03/26/2020 Medical Condition(s): Other Physical Therapy For: Evalulation/Treatment Occupational Therapy For: Evaluation/Treatment POST DISCHARGE ORDERS: DIET AFTER DISCHARGE: Regular CERTIFICATION STATEMENT: Certification Statement: Based on the above finding, I certify that this patient is confined to the home and needs intermittent assisted care, physical therapy and/or speech therapy, or continues to need occupational therapy.~ This patient is under my care, and I have initiated the establishment of the plan of care.~ This patient will be followed by myself or a community physician who will periodically review the plan of care. DISCHARGE MEDICATIONS: Home Meds Active Scripts Cefdinir (CEFDINIR) 300 Mg Capsule, 300 MG PO DAILY for uti for 5 Days, #5 CAP Prov:TERESA TONG MD 03/26/20 Reported Medications Albuterol Sulfate (VENTOLIN HFA INHALER) 18 Gm Hfa.aer.ad, 1 PUFF IH PRN Q4HRS PRN for SOA, INHALER 03/23/20 Oxybutynin Chloride (DITROPAN XL) 10 Mg Tab.er.24, 1 TAB PO DAILY for BLADDER SPASMS, TAB 03/23/20 Fluticasone Propionate (FLOVENT 110MCG HFA) 12 Gm Aer.w.adap, 2 PUFF IH BID for COUGH/SOA, INHALER 03/23/20 Aspirin (ASPIRIN) 81 Mg Tab.chew, 81 MG PO DAILY for VTE PRECAUTIONS, TAB 03/23/20 Albuterol Sulfate (PROAIR HFA INHALER) 8.5 Gm Hfa.aer.ad, 1 PUFF INH PRN Q6HRS PRN for SHORTNESS OF BREATH, INHALER 0 Refills 03/23/20 Acetaminophen (TYLENOL) 325 Mg Tablet, 2 TAB PO PRN Q4HRS for PAIN/FEVER, TAB 03/23/20 Metoprolol Tartrate (METOPROLOL TARTRATE) 50 Mg Tablet, 1 TAB PO DAILY for ., #60 TAB 5 Refills 03/22/20 Atorvastatin Calcium (ATORVASTATIN CALCIUM) 40 Mg Tablet, 1 TAB PO DAILY for ., #30 TAB 5 Refills 03/22/20 Furosemide (FUROSEMIDE) 20 Mg Tablet, 1 TAB PO DAILY for diuretic, #90 TAB 1 Refill 03/22/20 Duloxetine Hcl (CYMBALTA) 60 Mg Capsule.dr, 1 CAP PO DAILY for nerve pain, #90 CAP 3 Refills 03/22/20 Pantoprazole Sodium (PANTOPRAZOLE SODIUM) 40 Mg Tablet.dr, 1 TAB PO DAILY for GERD, #30 TAB 3 Refills 03/22/20 Levothyroxine Sodium (LEVOTHYROXINE SODIUM) 50 Mcg Tablet, 1 TAB PO DAILY for hypothyroid, #30 TAB 5 Refills 03/22/20 TERESA TONG MD Mar 26, 2020 15:13
--- NOTE | 2020-03-27 02:20 | DS ---
DATE OF DISCHARGE: 03/26/2020 HOSPITAL COURSE: The patient is an 85-year-old female patient who was originally admitted on 03/22/2020 with syncopal episode, thought initially to be probably vasovagal; however, she did have recurrent bouts of nausea, vomiting and diarrhea. She was treated with IV fluids and further evaluation showed that she was positive for coronavirus PCR. She was continued on all her medications. She was also found to have urinary tract infection with growth of more than 100,000 colony forming units per mL of Escherichia coli sensitive to oral antibiotic. She was treated with IV ceftriaxone. In that, she remained hemodynamically stable and afebrile. She has had no further syncopal episode. Has no nausea, vomiting. No more diarrhea. She is tolerating her diet very well. A decision was made to discharge her home with home health. PHYSICAL EXAMINATION: GENERAL: When I saw her today, she looked well and was clearly in no apparent respiratory distress. No pallor, jaundice, cyanosis or thyromegaly. No jugular venous distention or limb edema. VITAL SIGNS: Her heart rate was 63, blood pressure was 134/54, temperature was 97.2, respiratory rate was 18, oxygen saturation was 98% on room air. HEAD, EYES, EARS, NOSE AND THROAT: Showed normocephalic, atraumatic. NECK: Supple. HEART: Normal first and second heart sounds. No gallop or murmur. CHEST: Clear to auscultation. No crepitation or rhonchi. ABDOMEN: Distended, soft, nontender. NEUROLOGIC: She is extremely hard of hearing, otherwise all her cranial nerves are intact. EXTREMITIES: She moves extremities without difficulty. LABORATORY DATA: As of yesterday showed a white cell count of 6600, hemoglobin 10, hematocrit 32, MCV 95 and platelet count of 164,000. Her chemistry showed serum sodium of 142, potassium 4.5, chloride 108, bicarbonate 22, anion gap of 12. BUN 58, creatinine 3.2, estimated GFR was 14 mL per minute. Glucose 120, calcium 7.5. Total bilirubin, AST, ALT, alkaline phosphatase were normal. Total protein 6.4, albumin was 2.7. Her urinalysis was consistent with urinary tract infection with 20-40 wbc's and too many bacteria. Her urine culture has grown more than 100,000 colony forming units per mL of gram-negative rods identified as Escherichia coli sensitive to all antibiotics. DISCHARGE MEDICATIONS: She was discharged on cefdinir 300 mg once a day for 5 more days, Tylenol 650 mg every 4 hours, albuterol sulfate 1 puff every 6 hours, aspirin 81 mg once a day, atorvastatin calcium 40 mg daily, duloxetine for Cymbalta 60 mg once a day, Flovent 2 puffs twice a day, furosemide 20 mg daily, levothyroxine sodium 50 mcg once a day, metoprolol tartrate 50 mg twice a day, oxybutynin chloride for Ditropan XL 10 mg once a day, Protonix 40 mg once a day. FINAL DISCHARGE DIAGNOSES: 1. Syncopal episode, likely vasovagal; however, she transpired that she has nausea, vomiting, diarrhea and probably dehydration. 2. She was positive for coronavirus-PCR. 3. Chronic kidney disease, severe sensorineural deafness. 4. Degenerative joint disease. 5. Urinary tract infection with ____ Escherichia coli. TERESA TONG MD DR: BERE/rachel JOB#: [id number] / [id number]
== END 2020-03-26 15:45 | disposition home health service (06) | DRG 177 ==
LOC: ER 04:25 → ICU 06:48 → 1 SOUTH 14:35
PROVIDERS: ADMIT Hospitalist; ATTEND Hospitalist
DX: U07.1 COVID-19 (principal); N17.0 Acute kidney failure with tubular necrosis; J98.11 Atelectasis; N18.4 Chronic kidney disease, stage 4 (severe); N39.0 Urinary tract infection, site not specified; E44.0 Moderate protein-calorie malnutrition; B96.20 Unspecified Escherichia coli [E. coli] as the cause of diseases classified elsewhere; E86.0 Dehydration; H90.5 Unspecified sensorineural hearing loss; K44.9 Diaphragmatic hernia without obstruction or gangrene; M19.90 Unspecified osteoarthritis, unspecified site; M41.9 Scoliosis, unspecified; Z79.899 Other long term (current) drug therapy; Z68.33 Body mass index [BMI] 33.0-33.9, adult
CPT/HCPCS: 36415; 70450; 71045; 74176; 80048; 80053; 81001; 84484; 85025; 85027; 87077; 87086; 87186; 93005; 96360; 96361; 99285; J0696; J1650; J2405; J7613; J8540; U0003; 97535; J7030

== ENCOUNTER 2021-07-28 01:55 | Emergency (ER) | payer MEDICARE ==
[~2021-07-28] VITALS: Ht 172.7 cm; Wt 87.7 kg
[~2021-07-28 01:55] MED LIST: ACET325T9 PO; ALBU2.5V8 IH; ALBU2.5V8 INH; ASPI-630 PO; ATOR40TA59 PO; CEFD300C PO; DULO60CA7 PO; FLUT12AE IH; FURO20TA3 PO; LEVO50TA5 PO; METO50TA6 PO; OXYB10TA7 PO; PANT40TA6 PO
--- NOTE | 2021-07-28 02:21 | PHYS DOC ---
Past History Past Medical History: Asthma, CAD, CHF, COPD, Hypertension, Hypothyroid, Renal Disease, Renal Failure General Adult EDM: Chief Complaint: CPR/FULL ARREST HPI: HPI: " We just got in from [place] on vacation,,, we were gone from Sunday ...until today.... We just pulled into the driveway....She was still in the car.. and said she was short of breath... . said she needed her inhaler.. I gave her a puff.. she nodded .. to let me know to give her another puff... I gave it..,. and then she just went limp... We call 911 right away.. we got her down .. . He took out her dentures.. and then he got a cough drop out of her air way.. We were doing compression.. and then the paramedics and fire department took over.. she had been doing pretty well.on the trip.... her Dr. Houston had just retired. .. so we had just called for followup.. she had not gotten a new doctor yet..." She had some history of cardiac disease, heart failure, hypothyroidism, renal failure and bad asthma.. ( Daughter) Patient is a 86 year old female who presents with hx of cardiopulmonary arrest, . Suspect initial cause was airway obstruction due to a vidal cough drop. Paramedics continued CPR and ventilations with bag mask. Patient had an oral airway. Paramedics did place a interosseous on the left tibia area. Patient received 6 Amp of epinephrine in route to the hospital with no response. Rhythm remained idioventricular or asystole majority of time. No return of any pulses . No spontaneous respirations. Patient arrived with compressor continued CPR and bag mask ventilation 100% oxygen.. 137 glucose per EMS. ACLS protocols continued after arrival with compressor and bag mask ventilations. Patient never had a spontaneous pulse except with compressions. Patient's received ventilations. Had breath sounds more prominently on right. No spontaneous ventilations.. Presents pupils were fixed and dilated. Pe ripherally she was cyanotic. Patient received additional epinephrines IV with no cardiac response. Code was eventually called at 205 hours. Patient follows at with Dr. Randee Houston Review of Systems: Review of Systems: Cardiopulmonary arrest Family History: Family History: Noncontributory to presentation Current Medications: Current Meds: See nursing for home meds Allergies: Allergies: No known drug allergies Physical Exam: PE: Constitutional: Morbid in appearance HENT: Normocephalic, atraumatic, bilateral external ears normal, oropharynx dhruv st, no oral exudates, nose normal. Oral airway and Eyes: Fixed and dilated, conjunctiva pale, no discharge. [] Neck: Trachea midline Cardiovascular: No spontaneous heart rate or pulses. Only pulses present or CPR. Lungs & Thorax: Bilateral breath sounds present decreased on right, rhonchi. Compressor injury Abdomen: Distended. Old scars. Obese. Skin: Peripheral cyanosis, poor turgor. No cap refill Back: No obvious injury Extremities: , peripheral cyanosis, , bilateral ankle edema. [] Interosseous left leg Neurologic: No spontaneous movements. EKG: EKG: Monitor showed flat line or asystole for most of resuscitation . Radiology/Procedures: Radiology/Procedures: [] Heart Score: C/O Chest Pain: N/A Risk Factors: Risk Factors: DM, Current or recent (<one month) smoker, HTN, HLP, family history of CAD, obesity. Risk Scores: Score 0 - 3: 2.5% MACE over next 6 weeks - Discharge Home Score 4 - 6: 20.3% MACE over next 6 weeks - Admit for Clinical Observation Score 7 - 10: 72.7% MACE over next 6 weeks - Early Invasive Strategies Course & Med Decision Making: Course & Med Decision Making Pertinent Labs and Imaging studies reviewed. (See chart for details) See code sheet for details of code. Impression: 1. Cardiac pulmonary arrest 2. Suspect history airway obstruction with cough drop 3. Critical potassium 7.5 4. Acute on chronic renal failure BUN 47/creatinine 3.7 5. History of anemia -hemoglobin 8.7 6. Elevated LFTs AST 169, ALT 128, alk phos 132 7. CHF-BNP 1735 8. History of coronary artery disease 9. History of hypertension 10.Hx. DM [] Dragon Disclaimer: Dragon Disclaimer: This electronic medical record was generated, in whole or in part, using a voice recognition dictation system. Dragon Disclaimer This chart was dictated in whole or in part using Voice Recognition software in a busy, high-work load, and often noisy Emergency Department environment. It may contain unintended and wholly unrecognized errors or omissions. Dragon Disclaimer This chart was dictated in whole or in part using Voice Recognition software in a busy, high-work load, and often noisy Emergency Department environment. It may contain unintended and wholly unrecognized errors or omissions. Dragon Disclaimer This chart was dictated in whole or in part using Voice Recognition software in a busy, high-work load, and often noisy Emergency Department environment. It may contain unintended and wholly unrecognized errors or omissions. THELMA CAREY MD Jul 28, 2021 02:21
[2021-07-28 02:49] LABS: BASO # 0.1 x10^3/uL (0.0-0.2); BASO % 1 % (0-3); EOS # 0.4 x10^3/uL (0.0-0.7); EOS % 4 % (0-3); HEMATOCRIT 30.9 % (36.0-47.0); HEMOGLOBIN 8.7 g/dL (12.0-15.5); LYMPH # 5.3 x10^3/uL (1.0-4.8); LYMPH % 55 % (24-48); MEAN CORPUSCULAR HEMOGLOBIN 29 pg (25-35); MEAN CORPUSCULAR HGB CONC 28 g/dL (31-37); MEAN CORPUSCULAR VOLUME 103 fL (79-100); MONO # 0.6 x10^3/uL (0.0-1.1); MONO % 7 % (0-9); NEUT # 3.3 x10^3uL (1.8-7.7); NEUT % 34 % (31-73); PLATELET COUNT 197 x10^3/uL (140-400); RED BLOOD COUNT 3.01 x10^6/uL (3.50-5.40); WHITE BLOOD COUNT 9.7 x10^3/uL (4.0-11.0)
[2021-07-28 03:00] LABS: ALBUMIN 2.6 g/dL (3.4-5.0); ALK PHOS 132 U/L (46-116); ALT (SGPT) 128 U/L (14-59); ANION GAP 20 (6-14); AST (SGOT) 169 U/L (15-37); BLOOD UREA NITROGEN 47 mg/dL (7-20); CALCIUM 8.8 mg/dL (8.5-10.1); CARBON DIOXIDE 15 mmol/L (21-32); CHLORIDE 110 mmol/L (98-107); CREATININE 3.7 mg/dL (0.6-1.0); GFR 11.6; GLUCOSE 365 mg/dL (70-99); MAGNESIUM 2.6 mg/dL (1.8-2.4); SODIUM 145 mmol/L (136-145); TOTAL BILIRUBIN 0.2 mg/dL (0.2-1.0); TOTAL PROTEIN 6.1 g/dL (6.4-8.2)
[2021-07-28 03:05] LABS: DIRECT BILIRUBIN < 0.1 mg/dL (0.0-0.2)
[2021-07-28 03:06] LABS: POTASSIUM 7.3 mmol/L (3.5-5.1)
[2021-07-28] MEDS ORDERED: EPINEPHrine SYRINGE 1 MG/10 ML SYRINGE. IV ONE ×3 (03:30)
[2021-07-28 04:22] LABS: % EOS 4 % (0-5); % LYMPHS 71 % (24-48); % MONOS 5 % (0-10); % SEGS 20 % (35-66)
[2021-07-28 04:23] LABS: ANISOCYTOSIS PRESENT
[2021-07-28 04:24] LABS: SCHISTOCYTES FEW
[2021-07-28 04:26] LABS: ACANTHOCYTES FEW; HYPOCHROMIA SLIGHT
[2021-07-28 04:27] LABS: BURR CELLS FEW; PLT ESTIMATE ADEQUATE (ADEQUATE)
[2021-07-28 04:28] LABS: MICROCYTOSIS SLIGHT
== END 2021-07-28 04:35 ==
LOC: MERGE 01:55 → EDBD 01:55 → ER 01:55
DX: I46.9 Cardiac arrest, cause unspecified (principal); I13.0 Hypertensive heart and chronic kidney disease with heart failure and stage 1 through stage 4 chronic kidney disease, or unspecified chronic kidney disease; N18.9 Chronic kidney disease, unspecified; E11.22 Type 2 diabetes mellitus with diabetic chronic kidney disease; I50.9 Heart failure, unspecified; R79.89 Other specified abnormal findings of blood chemistry; I25.10 Atherosclerotic heart disease of native coronary artery without angina pectoris; J44.9 Chronic obstructive pulmonary disease, unspecified; E03.9 Hypothyroidism, unspecified; Z86.2 Personal history of diseases of the blood and blood-forming organs and certain disorders involving the immune mechanism
CPT/HCPCS: 36415; 80048; 80076; 82550; 83735; 83880; 84484; 85007; 85025; 85379; 85610; 85730; 92950; 96374; 99285; J0171